=== PATIENT | male | born 1980 | race Caucasian/White ===

== ENCOUNTER → 2021-02-25 15:49 | Outpatient (CLI) | payer OTHER, SELFPAY ==
--- NOTE | 2021-02-25 15:53 | DI.ECHO.S_ITS ---
[facility] +---------+ : : [address] [place] : : : : [id number] : : : : Phone: [phone]+ Echocardiogram Report + + :Name: FARHAN BARLOW Study Date: 02/25/2021 Height: 72 in : :[facility] ReadingLocation: Weight: 241 lb : : Gender: Male BSA: 2.3 m2 : :: 1980 Age: 41 yrs BP: 147/93 mmHg: :Reason For Study: HYPERTENSION : :Ordering Physician: LUCERO, : :JADON Performed By: Tish Zavala : :Referring: JADON BARKER : + + Interpretation Summary Normal sinus rhythm. Mildly dilated LV with normal wall thickness and wall motion. EF is 55-60%. Mildly dilated RV; otherwise normal chamber sizes. No significant valvular abnormalities. No prior study available for comparison. Procedure: A two-dimensional transthoracic echocardiogram with color flow and Doppler was performed. The study quality was technically adequate. There is no prior echocardiogram noted for this patient. The patient was in sinus bradycardia with heart rates between 54-61 bpm during the exam. Left Ventricle: The left ventricle is mildly dilated. There is normal left ventricular wall thickness. The ejection fraction is estimated to be 55-60%. Diastolic parameters suggest probable normal left ventricular diastolic function and normal filling pressures. Right Ventricle: The right ventricle is mildly dilated. The right ventricular systolic function is normal. Atria: The left atrial size is normal. Right atrial size is normal. There is no Doppler evidence for an interatrial shunt. Mitral Valve: The mitral valve is normal in structure and function. There is trace mitral regurgitation. Aortic Valve: The aortic valve is trileaflet. The aortic valve opens well. There is no aortic valve stenosis. No aortic regurgitation is present. Tricuspid Valve: The tricuspid valve is normal in structure and function. Pulmonary artery pressures cannot be estimated because of the lack of a measurable TR jet velocity but the IVC suggests a CVP of around 3 mmHg. There is trace tricuspid regurgitation. Pulmonic Valve: The pulmonic valve leaflets are thin and pliable; valve motion is normal. There is trace pulmonic regurgitation. Great Vessels: The aortic root is normal size. The ascending aorta is mildly enlarged. The IVC is of normal diameter and collapses greater than 50% with a sniff. This suggests a low right atrial pressure of 3 mm Hg. Pericardium/ Pleura There is no pericardial effusion. There is no pleural effusion. MMode/2D Measurements & Calculations LVIDd: 6.2 cm LVOT diam: 2.2 cm LVIDs: 4.0 cm Ao root diam: 3.6 cm FS: 34.6 % asc Aorta Diam: 3.6 cm EPSS: 1.4 cm Ao Arch Diam (Prox Trans): 2.9 cm IVSd: 0.80 cm LVPWd: 0.79 cm LV diallo. diameter/BSA (cm/m^2): 2.7 LV sys. diameter/BSA (cm/m^2): 1.7 LA A2 area: 25.9 cm2 RA long axis: 5.0 cm LA A4 area: 16.8 cm2 RA area: 18.0 cm2 LA length (vol): 5.3 cm RA vol: 55.2 ml LA vol: 69.7 ml RA : 23.9 ml/m2 LA vol index: 30.2 ml/m2 IVC diam: 2.0 cm RVD1 (basal): 3.5 cm TAPSE: 2.9 cm Doppler Measurements & Calculations Ao V2 max: 124.0 cm/sec LVOT Max Thomas: 96.5 cm/sec Ao V2 mean: 93.3 cm/sec LV V1 max P.7 mmHg Ao max P.2 mmHg LV V1 VTI: 21.2 cm Ao mean P.8 mmHg GREG(I,D): 2.9 cm2 Ao V2 VTI: 28.8 cm GREG(V,D): 3.1 cm2 sev ratio: 0.74 GREG indexed to BSA (cm^2/m^2): 1.3 MV E max thomas: 84.1 cm/sec PA V2 max: 81.6 cm/sec MV A max thomas: 48.0 cm/sec PA V2 mean: 58.8 cm/sec MV E/A: 1.8 PA mean P.5 mmHg Med Peak E' Thomas: 11.2 cm/sec PA pr(Accel): 19.1 mmHg E/E' med: 7.5 Lat Peak E' Thomas: 12.7 cm/sec E/E' lat: 6.6 E/e' average: 7.1 MV dec time: 0.29 sec SV(LVOT): 83.8 ml Electronically signed by: Scarlet Wilson M.D. on Reading Physician:02/26/2021 12:15 AM
== END ==
PROVIDERS: Referring Provider Physician Assistant; Visit Provider Orthopaedic Surgery
DX: I77.89 Other specified disorders of arteries and arterioles (principal); I10 Essential (primary) hypertension
CPT/HCPCS: 93306